=== PATIENT | male | born 1970 | race Two or more races ===

== ENCOUNTER 2020-01-03 11:11 | Emergency (ER) | payer OTHER ==
[2020-01-03] MEDS ORDERED: SODIUM CHLORIDE 1,000 ML IV STA (11:21)
--- NOTE | 2020-01-03 11:21 | PDOC ---
Rapid Medical Evaluation Time Seen by Provider: 01/03/20 11:18 Medical Evaluation: 01/03/20 11:18 I performed a brief in-person evaluation of this patient. Pt is a 49 y/o male with h/o HTN who presents to the ED with two episodes of severe lightheadedness and chest tightness. He states he feels nauseated and has a ALDANA. The patient states that yesterday he had chest tightness as well. Pertinent physical exam findings: speaking in full sentences, appears weak but nontoxic, no respiratory distress I have ordered the following: cardiac labs, ekg, fluids Patient to proceed to ED for further evaluation. Discharge Disposition - Diagnosis Lightheadedness - Referrals - Patient Instructions - Post Discharge Activity
[2020-01-03 11:22] VITALS: TEMP 97.6; BMI 30.7
[2020-01-03 12:41] LABS: BASO % 0.7 % (0-2.0); EOS % 1.9 % (0-4.5); HEMATOCRIT 48.6 % (35.4-49); HEMOGLOBIN 16.7 GM/dL (11.7-16.9); LYMPH % 25.6 % (8-40); MCHC 34.4 g/dl (32.0-35.9); MEAN PLT VOLUME 10.1 fl (7.5-11.1); MONO % 7.7 % (3.8-10.2); NEUT % 64.1 % (42.8-82.8); PLATELET COUNT 141 K/MM3 (134-434); RDW 12.5 % (11.9-15.9); WHITE BLOOD COUNT 7.1 K/mm3 (4.0-10.0)
[2020-01-03] MEDS ORDERED: ASPIRIN 81 MG CHEWABLE TABLETS PO ONE (12:44)
[2020-01-03] MEDS ORDERED: SODIUM CHLORIDE 500 ML IV STA (12:45)
[2020-01-03 12:48] LABS: INR 1.02 (0.83-1.09)
--- NOTE | 2020-01-03 12:48 | PDOC ---
History of Present Illness - General Chief Complaint: Syncope/Near Syncope Stated Complaint: SYNCOPE Time Seen by Provider: 01/03/20 11:18 - History of Present Illness Initial Comments: 01/03/20 12:46 HPI: 49 y/o M with hx of HTN and HLD presenting with presyncope. He was working around his house this morning doing home improvement when he felt LH after getting up from bending down. He was clening the base of the fridge. After getting up he felt LH with diaphoresis and nausea. He reports similar symptoms in the past. Symptoms occurred around 9L30am and persisted after he sat down. He denies chest pain, ALDANA, SOB, syncope, fall, palp, fever, emesis. He was otherwise in his normal state of health prior to today. He took baby ASA this morning. He reports prior symptoms with similar motion when getting up from a bending down position. PMHx: as noted above ROS: as noted SHx: Denies tobacco use; occ alcohol use; no rec drugs Allergies: NKDA ROS: GENERAL/CONSTITUTIONAL: No fever or chills. +gen weakness. HEAD, EYES, EARS, NOSE AND THROAT: No change in vision. No ear pain or discharge. No sore throat. CARDIOVASCULAR: No chest pain or shortness of breath RESPIRATORY: No cough, wheezing, or hemoptysis. GASTROINTESTINAL: +nausea; no vomiting, diarrhea or constipation. GENITOURINARY: No dysuria, frequency, or change in urination. MUSCULOSKELETAL: No joint or muscle swelling or pain. No neck or back pain. SKIN: No rash NEUROLOGIC: No headache, vertigo, loss of consciousness, or change in strength/sensation. ENDOCRINE: No increased thirst. No abnormal weight change HEMATOLOGIC/LYMPHATIC: No anemia, easy bleeding, or history of blood clots. ALLERGIC/IMMUNOLOGIC: No hives or skin allergy. PE: GENERAL: Awake, alert, and fully oriented, no acute distress HEAD: No signs of trauma, normocephalic, atraumatic EYES: EOMI, sclera anicteric, conjunctiva clear ENT: Auricles normal inspection, hearing grossly normal, nares patent, oropharynx clear without exudates. Moist mucosa NECK: Normal ROM, no lymphadenopathy LUNGS: No increased work of breathing, symmetrical chest rise, coarse LLL breath sound HEART: Regular rate, regular rhythm, normal S1 and S2, no murmur, peripheral pulses 2+ and equal bilaterally. BL LE trace edema ABDOMEN: Soft, nondistended, nontender. No guarding, no rebound. No masses. No CVAT MUSCULOSKELETAL: FROM NEUROLOGICAL: Cranial nerves II through XII grossly intact. Normal speech, normal gait, no focal sensorimotor deficits SKIN: Warm, Dry, normal turgor, no rashes or lesions noted Past History - Medical History Allergies/Adverse Reactions: Allergies Allergy/AdvReac Type Severity Reaction Status Date / Time No Known Allergies Allergy Verified 01/03/20 11:22 Home Medications: Ambulatory Orders NK [No Known Home Medication] 01/03/20 COPD: No HTN: Yes - Psycho-Social/Smoking History Smoking History: Never smoked - Substance Abuse Hx (Audit-C & DAST Scrn) How often the patient has a drink containing alcohol: Monthly or less Score: In Men: 4 or > Positive; In Women: 3 or > Positive: 1 Screen Result (Pos requires Nsg. Audit-10AR): Negative *Physical Exam - Vital Signs Last Vital Signs Temp Pulse Resp BP Pulse Ox 97.6 F 85 18 157/108 H 99 01/03/20 11:18 01/03/20 11:18 01/03/20 11:18 01/03/20 11:18 01/03/20 11:18 ED Treatment Course - LABORATORY CBC & Chemistry Diagram: 01/03/20 12:26 01/03/20 12:26 Medical Decision Making - Medical Decision Making 01/03/20 14:15 49 y/o M with hx of HTN and HLD presenting with presyncope. VSS, AF. PE with trace LE edema. DDx includes orthostasis 2/2 dehydration, acs, arrhythmia, chf -cbc, cmp, card prof, coags, mg, ekg, cxr -ivf, 243 mg asa -reassess 01/03/20 14:17 BP improved to 131/97; patient reports mild ALDANA, will give tylenol ekg nsr with no marko/d labs wnl cxr with no acute pathology on further hx, patient reports similar symptoms and has been workup up with cardio with stress test and echo with negative findings discussed shared decision making process for admission tele for continued cardiac monitoring vs DC with cardio f/u; he states he already has an appt tomorrow and woiuld like DC ALDANA improving Discharge - Discharge Information Problems reviewed: Yes Clinical Impression/Diagnosis: Lightheadedness Condition: Improved Disposition: HOME - Follow up/Referral Referrals: ON STAFF,NOT [Primary Care Provider] - - Patient Discharge Instructions Patient Printed Discharge Instructions: DI for Syncope in Adults (Fainting) Additional Instructions: Additional Instructions: Please return to the emergency department with any new or worsening symptoms or concerns including fainting, chest pain, shortness of breath. Please follow up with your door person tomorrow as scheduled Please take your home medications as prescribed Take tylenol 650mg every 6-8 hours and ibuprofen 600mg every 6-8 hours as needed for pain control of headache - Post Discharge Activity Vital Signs - Vital Signs Blood Pressure: 131/97 Blood Pressure position: Sitting
[2020-01-03 12:50] LABS: ACTIVATED PTT 30.4 SECONDS (25.2-36.5)
[2020-01-03 13:08] LABS: ALK PHOS 116 U/L (45-117); ANION GAP 9 MMOL/L (8-16); BILIRUBIN,TOTAL 1.7 mg/dL (0.2-1); BLOOD UREA NITROGEN 9.7 mg/dL (7-18); CALCIUM 8.6 mg/dL (8.5-10.1); CHLORIDE 105 mmol/L (98-107); CO2 23 mmol/L (21-32); CREATININE 0.9 mg/dL (0.55-1.3); GLUCOSE,RANDOM 115 mg/dL (74-106); MAGNESIUM 2.5 mg/dL (1.8-2.4); POTASSIUM 3.8 mmol/L (3.5-5.1); SGOT/AST 22 U/L (15-37); SGPT/ALT 32 U/L (13-61); SODIUM 137 mmol/L (136-145); TOT PROT 7.5 g/dl (6.4-8.2)
[2020-01-03] MEDS ORDERED: ASPIRIN 81 MG CHEWABLE TABLETS ONE (13:36)
[2020-01-03] MEDS ORDERED: ACETAMINOPHEN 500 MG TABLET (FP) PO ONE (13:53)
[2020-01-03] MEDS ORDERED: ACETAMINOPHEN 325 MG TABLET (FP) ONE (13:58)
[2020-01-03] MEDS ORDERED: KETOROLAC TROMETHAMINE 30 MG/1 ML VIAL IVPUSH ONE (15:34)
--- NOTE | 2020-01-03 15:49 | PDOC ---
Documentation entered by Juanis Kauffman SCRIBE, acting as scribe for Carolyn Harris MD. Carolyn Harris MD: This documentation has been prepared by the bereniceeDaly Sydney, SCRIBE, under my direction and personally reviewed by me in its entirety. I confirm that the documentation accurately reflects all work, treatment, procedures, and medical decision making performed by me. Attending Attestation - Resident Resident Name: YogeshAryablank - ED Attending Attestation I have performed the following: I have examined & evaluated the patient, The case was reviewed & discussed with the resident, I agree w/resident's findings & plan, Exceptions are as noted - HPI HPI: 01/03/20 15:05 Patient is a 49 year old male with a significant past medical history of HTN, HLD (non-compliant with medications) who presents to the ED with 2 episodes of dizziness. Patient reports two episodes of dizziness this morning with associated diaphoresis, both after standing after kneeling down from a bent position. He notes that during these episodes, he started to see tunnel vision, prompting him to lie down and call his brother for assistance. Denies LOC. Both episodes lasted for less than 1 minute. Patient admits to similar episodes in the past, also triggered by standing up, but today his symptoms lasted longer than usual. He states that he has trouble sleeping, is very active during the daytime, and rarely allows himself to rest. He has seen a yarn tester for these symptoms in the past and had a reportedly negative echo and stress test. Patient denies fever, vision change, chest pain, palpitations, SOB, cough, leg swelling, abdominal pain, nausea, vomiting, diarrhea, constipation, dysuria, hematuria, BPR. Denies recent travel or immobility. Allergies: NKDA - Physicial Exam PE: 01/03/20 13:24 GENERAL: Awake, alert, and fully oriented, in no acute distress HEAD: No signs of trauma EYES: PERRLA, EOMI, sclera anicteric, conjunctiva clear ENT: Auricles normal inspection, hearing grossly normal, nares patent, oropharynx clear without exudates. Moist mucosa NECK: Normal ROM, supple, no lymphadenopathy, JVD, or masses LUNGS: Breath sounds equal, clear to auscultation bilaterally. No wheezes, and no crackles HEART: Regular rate and rhythm, normal S1 and S2, no murmurs, rubs or gallops ABDOMEN: Soft, nontender, normoactive bowel sounds. No guarding, no rebound. No masses EXTREMITIES: Normal range of motion, no edema. No clubbing or cyanosis. No cords, erythema, or tenderness BACK: No midline spinal tenderness in cervical/thoracic/lumbar region NEUROLOGICAL: Normal speech, cranial nerves intact, negative pronator drift, 5/5 strength in all 4 extremities, normal sensation to light touch in all 4 extremities, normal cerebellar exam, normal reflexes and tone SKIN: Warm, Dry, normal turgor, no rashes or lesions noted. - Medical Decision Making 01/03/20 15:43 49yo M hx HTN, HL presents to the ED with pre-syncope after standing from kneeling position x2 Initial BP elevated, but on recheck normalized w/o intervention Exam wnl EKG wnl, NSR, rate 78, normal axis and intervals, no CE Multiple episodes of similar sxs in past with negative echo and stress test Most likely orthostasis, but given hx HTN, HL possible concern for arrhythmia Pt developed gradual onset, bitemproal ford on way to ED that has improved with tylenol and toradol. Neuro exam wnl, no deficits. Neck supple. Pt was offered admission for observation but prefers to be discharged as he feels better and [facility] Return precautions discussed at length with pt who expresses understanding I discussed the physical exam findings, ancillary test results and final diagnoses with the patient. I answered all of the patient's questions. The patient was satisfied with the care received and felt comfortable with the discharge plan and treatment plan. The patient will call their primary care physician within 24 hours to arrange follow-up and will return to the Emergency Department with any new, persistent or worsening symptoms. Discharge - Discharge Information Problems reviewed: No Clinical Impression/Diagnosis: Lightheadedness, Pre-syncope, Dizziness Condition: Stable Disposition: HOME - Admission No - Follow up/Referral - Patient Discharge Instructions Patient Printed Discharge Instructions: DI for Syncope in Adults (Fainting) Additional Instructions: Additional Instructions: Please return to the emergency department with any new or worsening symptoms or concerns including fainting, chest pain, shortness of breath. Please follow up with your yarn tester tomorrow as scheduled Please take your home medications as prescribed Take tylenol 650mg every 6-8 hours and ibuprofen 600mg every 6-8 hours as needed for pain control of headache - Post Discharge Activity
[2020-01-03] MEDS ORDERED: KETOROLAC TROMETHAMINE 30 MG/1 ML VIAL ONE (15:53)
[2020-01-03 16:00] VITALS: BP 137/90; PULSE 73
--- NOTE | 2020-01-04 14:57 | EKG ---
Test Reason : Blood Pressure : / mmHG Vent. Rate : 078 BPM Atrial Rate : 078 BPM P-R Int : 150 ms QRS Dur : 094 ms QT Int : 400 ms P-R-T Axes : 031 037 024 degrees QTc Int : 456 ms NORMAL SINUS RHYTHM NO PREVIOUS ECGS AVAILABLE Confirmed by KYLEE COYLE MD ([id number]) on 01/04/2020 2:57:24 PM Referred By: Confirmed By:KYLEE COYLE MD
== END 2020-01-03 16:13 | disposition home or self-care (01) ==
LOC: JER 11:11
PROC: 3E0337Z Introduction of Electrolytic and Water Balance Substance into Peripheral Vein, Percutaneous Approach (ICD-10-PCS; principal; 2020-01-03)
PROC: 3E033GC Introduction of Other Therapeutic Substance into Peripheral Vein, Percutaneous Approach (ICD-10-PCS; principal; 2020-01-03)
DX: R42 Dizziness and giddiness (principal)
CPT/HCPCS: 36415; 71046-TC-FY; 80053; 82550; 83735; 84484; 85025; 85610; 85730; 93005; 93010; 99285-25